=== PATIENT | female | born 1995 | race Caucasian/White ===

== ENCOUNTER 2019-01-16 19:17 | Emergency (ER) | payer BC, OTHER ==
[~2019-01-16] VITALS: Ht 160 cm; Wt 80.0 kg
[2019-01-16 19:42] LABS: CLARITY,URINE CLEAR; GLUCOSE, URINE (UA) NEGATIVE (NEGATIVE); KETONES,URINE 1+ (NEGATIVE); LEUKOCYTE ESTERASE ,URINE 3+ (NEGATIVE); NITRITE,URINE POSITIVE (NEGATIVE); PH,URINE 6 (5-9); PROTEIN,URINE 2+ (NEGATIVE); UROBILINOGEN,URINE 12 MG/DL (NORMAL)
[2019-01-16 19:52] LABS: BACTERIA,URINE FEW /HPF; BILIRUBIN,URINE 3+ (NEGATIVE); COLOR,URINE ORANGE
--- NOTE | 2019-01-16 19:52 | ED GU-Female ---
General Chief Complaint: - Urinary Stated Complaint: BACK PAIN Nursing Sepsis Screen: No Definite Risk Source: patient History of Present Illness Date Seen by Provider: Jan 16, 2019 Time Seen by Provider: 19:35 Initial Comments PT ARRIVES VIA POV WITH MULTIPLE FRIENDS C/O RIGHT FLANK PAIN OFF AND ON FOR AT LEAST 3 WEEKS OCCASIONALLY RADIATES TO RLQ AND RIGHT GROIN NOTHING WORSENS OR IMPROVES PAIN HAS NAUSEA WHEN PAIN IS BAD, BUT NO VOMITING/DIARRHEA/CONSTIPATION ONGOING URGENCY, FREQUENCY WITH URINATION X 3 WEEKS NO FEVER NO HISTORY OF SIMILAR HAS BEEN TO [facility] 2 FOR THIS, AND WAS GIVEN RX FOR MACROBID X 7 DAYS, AND TOLD TO TAKE OTC AZO FOR SYMPTOMS PT FINISHED ANTIBIOTIC 2 WEEKS AGO ALSO WENT TO [facility] ON THURSDAY, NO RX PT HAS NOT TAKEN ANYTHING FOR PAIN SYMPTOMS NO DIFFERENT TODAY LMP 12/21/18. NORMAL. ON OCP'S [facility] Allergies and Home Medications Allergies Coded Allergies: No Known Drug Allergies (Unverified , 01/16/19) Home Medications Hydrocodone Bit/Acetaminophen 1 Ea Tablet, 1 EA PO Q4H PRN for PAIN-MODERATE Prescribed by: OLU MANDEL on 01/16/192106 Levofloxacin 500 Mg Tablet, 500 MG PO DAILY Prescribed by: OLU MANDEL on 01/16/192106 Ondansetron 4 Mg Tab.rapdis, 4 MG PO Q4H Prescribed by: OLU MANDEL on 01/16/192106 Tamsulosin HCl 0.4 Mg Cap, 0.4 MG PO DAILY Prescribed by: OLU MANDEL on 01/16/192106 Patient Home Medication List Home Medication List Reviewed: Yes Review of Systems Review of Systems Constitutional: no symptoms reported; No fever Respiratory: no symptoms reported Cardiovascular: no symptoms reported Gastrointestinal: see HPI, abdominal pain, nausea; No vomiting Genitourinary: see HPI, frequency, flank pain, urgency : No LMP: Dec 21, 2018 Musculoskeletal: see HPI, back pain Skin: no symptoms reported; No rash Psychiatric/Neurological: No Symptoms Reported; Denies Numbness, Denies Paresthesia, Denies Tingling, Denies Weakness Endocrine: No Symptoms Reported Hematologic/Lymphatic: No Symptoms Reported Past Pqwaduc-Ivkanf-Qyxoia Hx Past Med/Social Hx: Reviewed and Corrections made Patient Social History Alcohol Use: Regular Use (WEEKENDS) Recreational Drug Use: Yes (THC) Drug of Choice: THC Smoking Status: Never a Smoker Recent Foreign Travel: No Contact w/Someone Who Travel: No Recent Infectious Disease Expo: No Past Medical History Surgeries: No Respiratory: No Cardiac: No Neurological: No Reproductive Disorders: No Genitourinary: No Gastrointestinal: No Musculoskeletal: No Endocrine: No HEENT: No Cancer: No Psychosocial: No Integumentary: No Blood Disorders: No Physical Exam Vital Signs Vital Signs - First Documented 01/16/19 19:28 Temp 36.6 Pulse 93 Resp 16 B/P (MAP) 142/100 (114) Pulse Ox 99 O2 Delivery Room Air Capillary Refill : Less Than 3 Seconds Height, Weight, BMI Height: '" Weight: lbs. oz. kg; 31.00 BMI Method: General Appearance: WD/WN, no apparent distress, other (WALKS UPRIGHT AND MOVES QUICKLY WITHOUT DIFFICULTY. SMILING, TALKATIVE, FULL/HEAVY MAKE UP, TEXTING/PLAYING ON PHONE. DOES NOT APPEAR TO BE IN ANY DISCOMFORT OR DISTRESS) Neck: normal inspection Cardiovascular: regular rate, rhythm, no murmur Respiratory: normal breath sounds, no respiratory distress, no accessory muscle use Gastrointestinal: normal bowel sounds, soft, no organomegaly, no pulsatile mass, tenderness (MILD RLQ TENDERNESS, MORE TENDER IN RIGHT FLANK) Back: no vertebral tenderness, CVA tenderness (R) Extremities: normal range of motion, non-tender, normal inspection, no pedal edema, no calf tenderness, normal capillary refill Neurologic/Psychiatric: [facility] specialist II-XII nml as tested, no motor/sensory deficits, alert, normal mood/affect, oriented x 3 Skin: normal color, warm/dry; No rash Progress/Results/Core Measures Suspected Sepsis Recent Fever Within 48 Hours: No Infection Criteria Present: Suspected New Infection New/Unexplained Altered Menta: No Sepsis Screen: No Definite Risk SIRS Temperature: Pulse: 93 Respiratory Rate: 16 Laboratory Tests 01/16/19 20:20: White Blood Count 11.4H Blood Pressure 142 /100 Mean: 114 Laboratory Tests 01/16/19 20:20: Creatinine 1.89H, Platelet Count 227, Total Bilirubin 0.3 Results/Orders Lab Results Laboratory Tests Test 01/16/19 19:35 01/16/19 20:20 Range/Units Urine Color ORANGE Urine Clarity CLEAR Urine pH 6 5-9 Urine Specific [place] 1.020 1.016-1.022 Urine Protein 2+ H NEGATIVE Urine Glucose (UA) NEGATIVE NEGATIVE Urine Ketones 1+ H NEGATIVE Urine Nitrite POSITIVE H NEGATIVE Urine Bilirubin 3+ H NEGATIVE Urine Urobilinogen 12 H NORMAL MG/DL Urine Leukocyte Esterase 3+ H NEGATIVE Urine RBC (Auto) 1+ H NEGATIVE Urine RBC 5-10 H /HPF Urine WBC 2-5 /HPF Urine Squamous Epithelial Cells 10-25 H /HPF Urine Crystals NONE /LPF Urine Bacteria FEW H /HPF Urine Casts NONE /LPF Urine Mucus NEGATIVE /LPF Urine Culture Indicated YES White Blood Count 11.4 H 4.3-11.0 10^3/uL Red Blood Count 4.56 4.35-5.85 10^6/uL Hemoglobin 13.3 11.5-16.0 G/DL Hematocrit 38 35-52 % Mean Corpuscular Volume 83 80-99 FL Mean Corpuscular Hemoglobin 29 25-34 PG Mean Corpuscular Hemoglobin Concent 35 32-36 G/DL Red Cell Distribution Width 12.1 10.0-14.5 % Platelet Count 227 130-400 10^3/uL Mean Platelet Volume 11.9 H 7.4-10.4 FL Neutrophils (%) (Auto) 66 42-75 % Lymphocytes (%) (Auto) 23 12-44 % Monocytes (%) (Auto) 8 0-12 % Eosinophils (%) (Auto) 3 0-10 % Basophils (%) (Auto) 1 0-10 % Neutrophils # (Auto) 7.6 1.8-7.8 X 10^3 Lymphocytes # (Auto) 2.6 1.0-4.0 X 10^3 Monocytes # (Auto) 0.9 0.0-1.0 X 10^3 Eosinophils # (Auto) 0.3 0.0-0.3 10^3/uL Basophils # (Auto) 0.1 0.0-0.1 10^3/uL Sodium Level 138 135-145 MMOL/L Potassium Level 3.9 3.6-5.0 MMOL/L Chloride Level 104 98-107 MMOL/L Carbon Dioxide Level 22 21-32 MMOL/L Anion Gap 12 5-14 MMOL/L Blood Urea Nitrogen 14 7-18 MG/DL Creatinine 1.89 H 0.60-1.30 MG/DL Estimat Glomerular Filtration Rate 33 BUN/Creatinine Ratio 7 Glucose Level 92 70-105 MG/DL Calcium Level 9.2 8.5-10.1 MG/DL Corrected Calcium 9.1 8.5-10.1 MG/DL Total Bilirubin 0.3 0.1-1.0 MG/DL Aspartate Amino Transf (AST/SGOT) 22 5-34 U/L Alanine Aminotransferase (ALT/SGPT) 21 0-55 U/L Alkaline Phosphatase 41 40-136 U/L Total Protein 7.2 6.4-8.2 GM/DL Albumin 4.1 3.2-4.5 GM/DL Amylase Level 83 25-125 U/L Lipase 30 8-78 U/L My Orders Orders - OLU MANDEL DO Ed Iv/Invasive Line Start (01/16/19 19:57) Ct Abd/Pelvis Wo(Kidney Stone) (01/16/19 19:57) Acute Abd Series (01/16/19 19:57) Amylase (01/16/19 19:57) Cbc With Automated Diff (01/16/19 19:57) Comprehensive Metabolic Panel (01/16/19 19:57) Lipase (01/16/19 19:57) Ed Iv/Invasive Line Start (01/16/19 19:57) Lactated Ringers (Lr 1000 Ml Iv Solution (01/16/19 19:57) Ketorolac Injection (Toradol Injection) (01/16/19 19:57) Ceftriaxone For Iv Use (Rocephin For I (01/16/19 20:00) Ed Iv/Invasive Line Start (01/16/19 20:48) Lactated Ringers (Lr 1000 Ml Iv Solution (01/16/19 20:48) Tamsulosin Capsule (Flomax Capsule) (01/16/19 21:15) Hydrocodone/Apap 5/325 Tablet (Lortab 5 (01/16/19 21:15) Levofloxacin Tablet (Levaquin Tablet) (01/16/19 21:15) Medications Given in ED Current Medications Medications Dose Ordered Sig/Raine Route Start Time Stop Time Status Last Admin Dose Admin Acetaminophen/ Hydrocodone Bitart 1 tab ONCE ONCE PO 01/16/19 21:15 01/16/19 21:16 DC 01/16/19 21:26 1 TAB Ceftriaxone Sodium 1000 mg/ Sterile Water 10 ml @ 200 mls/hr ONCE ONCE IV 01/16/19 20:00 01/16/19 20:02 DC 01/16/19 21:09 200 MLS/HR Lactated Ringer's 1,000 ml @ 0 mls/hr Q0M ONCE IV 01/16/19 19:57 01/16/19 19:59 DC 01/16/19 20:15 1,000 MLS/HR Lactated Ringer's 1,000 ml @ 0 mls/hr Q0M ONCE IV 01/16/19 20:48 01/16/19 20:49 DC 01/16/19 21:15 1,000 MLS/HR Levofloxacin 500 mg ONCE ONCE PO 01/16/19 21:15 01/16/19 21:16 DC 01/16/19 21:26 500 MG Vital Signs/I&O 01/16/19 01/16/19 19:28 21:31 Temp 36.6 36.7 Pulse 93 70 Resp 16 16 B/P (MAP) 142/100 (114) 105/73 Pulse Ox 99 98 O2 Delivery Room Air Room Air Capillary Refill : Less Than 3 Seconds Blood Pressure Mean: 114 Progress Note : Progress Note SYMPTOMS MUCH IMPROVED WITH MEDICATIONS Diagnostic Imaging Comments CT ABDOMEN / PELVIS--2 MM STONE AT RIGHT UVJ WITH MODERATE HYDRONEPHROSIS AND PERINEPHRIC STRANDING. PER RADIOLOGIST REPORT AT 2053 ACUTE ABDOMEN XRAYS--RIGHT PELVIC CALCIFICATION C/W URETERAL STONE NOTED ON CT. PER RADIOLOGIST REPORT AT 2102 Reviewed: Reviewed by Me Departure Impression Primary Impression: Right distal ureteral calculus Additional Impressions: UTI (urinary tract infection) Renal insufficiency Disposition: HOME, SELF-CARE Condition: Improved Departure-Patient Inst. Referrals: [facility] (PCP) Primary Care Physician HARVINDER MENDOSA MD Patient Instructions: Urinary Tract Infection, Adult (DC), Kidney Stones (DC), How to Strain Your Urine, Acute Kidney Failure (DC) Add. Discharge Instructions: LOTS OF CLEAR LIQUIDS-DRINK ENOUGH SO YOU ARE URINATING EVERY 2 HOURS WHILE AWAKE STRAIN ALL URINE, RETURN ANY STONES TO DR. MENDOSA'S OFFICE. FOLLOW UP WITH DR. MENDOSA IN 1-2 DAYS FOR FURTHER CARE, RETURN TO ER IF WORSE All discharge instructions reviewed with patient and/or family. Voiced understanding. Scripts Ondansetron (Ondansetron Odt) 4 Mg Tab.rapdis 4 MG PO Q4H for Nausea/Vomiting, #10 TAB Prov: OLU MANDEL DO 01/16/19 Hydrocodone Bit/Acetaminophen (LORTAB 7.5 MG TABLET) 1 Ea Tablet 1 EA PO Q4H PRN for PAIN-MODERATE MDD 6 for 3 Days, #20 TAB Prov: OLU MANDEL DO 01/16/19 Tamsulosin HCl (Flomax) 0.4 Mg Cap 0.4 MG PO DAILY, #10 CAP Prov: OLU MANDEL DO 01/16/19 Levofloxacin (Levaquin) 500 Mg Tablet 500 MG PO DAILY for INFECTION, #10 TAB Prov: OLU MANDEL DO 01/16/19 OLU MANDEL DO Jan 16, 2019 19:52
[2019-01-16] MEDS ORDERED: KETOROLAC 30 MG/ML VIAL IVP STA (19:57)
[2019-01-16] MEDS ORDERED: LACTATED RINGERS 1,000 ML IV ONE ×2 (19:57→20:48)
[2019-01-16] MEDS ORDERED: cefTRIAXone FOR IV USE 1,000 MG in WATER (STERILE) FOR INJECTION 10 ML IV ONE (20:00)
[2019-01-16 20:28] LABS: BASOPHILS # (AUTO) 0.1 10^3/uL (0.0-0.1); BASOPHILS % (AUTO) 1 % (0-10); EOSINOPHILS # (AUTO) 0.3 10^3/uL (0.0-0.3); EOSINOPHILS % (AUTO) 3 % (0-10); HEMATOCRIT 38 % (35-52); HEMOGLOBIN 13.3 G/DL (11.5-16.0); LYMPHOCYTES # (AUTO) 2.6 X 10^3 (1.0-4.0); LYMPHOCYTES % (AUTO) 23 % (12-44); MEAN CORPUSCULAR HEMOGLOBIN 29 PG (25-34); MEAN CORPUSCULAR HGB CONC 35 G/DL (32-36); MEAN CORPUSCULAR VOLUME 83 FL (80-99); MEAN PLATELET VOLUME 11.9 FL (7.4-10.4); MONOCYTES # (AUTO) 0.9 X 10^3 (0.0-1.0); MONOCYTES % (AUTO) 8 % (0-12); NEUTROPHILS # (AUTO) 7.6 X 10^3 (1.8-7.8); NEUTROPHILS % (AUTO) 66 % (42-75); PLATELET COUNT 227 10^3/uL (130-400); RED CELL DISTRIBUTION WIDTH 12.1 % (10.0-14.5); WHITE BLOOD COUNT 11.4 10^3/uL (4.3-11.0)
[2019-01-16 20:46] LABS: ALBUMIN 4.1 GM/DL (3.2-4.5); BILIRUBIN,TOTAL 0.3 MG/DL (0.1-1.0); CALCIUM 9.2 MG/DL (8.5-10.1); CREATININE SERUM 1.89 MG/DL (0.60-1.30); POTASSIUM 3.9 MMOL/L (3.6-5.0); TOTAL PROTEIN 7.2 GM/DL (6.4-8.2)
--- NOTE | 2019-01-16 20:48 | Diagnostic Imaging Report ---
INDICATION: Back pain and nausea. CT of the abdomen and pelvis obtained without IV contrast. There is no prior study for comparison. The visualized portions of the lung bases are clear. There were no pleural fluid collections. There is no free intraperitoneal air. The liver shows no focal lesions without contrast. Spleen, adrenals, and pancreas appear unremarkable. The left kidney appears normal. The right kidney shows perinephric edema with prominent hydronephrosis and hydroureter, with a small 2 mm stone at the right UVJ. There is no retroperitoneal mass or adenopathy. There is no ascites or abnormal fluid collection. Visualized bowel loops including the appendix appear normal. There is no adnexal mass or free fluid. IMPRESSION: Right-sided perinephric edema and hydronephrosis and hydroureter, secondary to a 2 mm stone at the right UVJ. There was no other significant finding. Dictated by: Dictated on workstation # [id number]
--- NOTE | 2019-01-16 20:54 | Diagnostic Imaging Report ---
INDICATION: Abdominal pain Abdominal series performed with a frontal chest radiograph and supine and upright abdominal films. Frontal chest view shows heart normal in size with the lungs clear. There is no pneumothorax or pleural fluid. Abdominal views demonstrate no evidence of free air. The abdominal bowel gas pattern is nonspecific. There is no overt obstruction. There is a tiny 2 mm calcification in the right side of the pelvis which is compatible with the right UVJ stone seen on CT. IMPRESSION: No sign of bowel obstruction or free air. No acute process in the chest. Small calcification in the right side of the pelvis is compatible with the right UVJ stone seen on CT. Dictated by: Dictated on workstation # [id number]
[2019-01-16] MEDS ORDERED: TAMS0.4C98 PO (21:07)
[2019-01-16] MEDS ORDERED: LEVO500T2 PO (21:07)
[2019-01-16] MEDS ORDERED: HYDR-34 PO (21:07)
[2019-01-16] MEDS ORDERED: ONDA4TAB11 PO (21:07)
[2019-01-16] MEDS ORDERED: TAMSULOSIN 0.4 MG (FLOMAX) CAP PO SCH (21:15)
[2019-01-16] MEDS ORDERED: HYDROcodone/APAP 5 MG/325 MG (LORTAB) TAB PO ONE (21:15)
[2019-01-16] MEDS ORDERED: LEVOFLOXACIN 500 MG TAB (LEVAQUIN) PO ONE (21:15)
[2019-01-16 21:31] VITALS: BP 105/73
== END 2019-01-16 22:30 | disposition home or self-care (01) ==
LOC: ER 19:20
DX: N13.2 Hydronephrosis with renal and ureteral calculous obstruction (principal); N39.0 Urinary tract infection, site not specified
CPT/HCPCS: 36415; 74022; 74176; 80053; 81000; 82150; 83690; 84703; 85025; 87088

== ENCOUNTER → 2019-01-18 | Outpatient (CLI) | payer BC ==
[~2019-01-18] MED LIST: HYDR-34 PO; LEVO500T2 PO; ONDA4TAB11 PO; TAMS0.4C98 PO
--- NOTE | 2019-01-18 13:39 | Diagnostic Imaging Report ---
INDICATION: Right flank pain and history of kidney stones. TIME OF EXAM: 12:59 p.m. FINDINGS: Frontal view of the abdomen and pelvis was obtained. Bowel gas pattern is nonobstructed. Tiny calcific density in the right pelvis is similar in location to the exam from two days earlier and again possibly at the right UVJ. No additional calculi are seen. IMPRESSION: Stable abdominal radiograph when compared with exam from two days earlier. Dictated by: Dictated on workstation # [id number]
== END ==
LOC: RAD 12:44
PROVIDERS: ATTEND Urology
DX: N20.1 Calculus of ureter (principal); Z87.442 Personal history of urinary calculi
CPT/HCPCS: 74018

== ENCOUNTER 2019-01-22 08:00 | Outpatient (RCR) | payer BC | END 2019-04-22 | disposition home or self-care (01) | LOC: LAB 08:00 → EDSTATUS 01-31 12:30 | PROVIDERS: ATTEND Urology | DX: N20.9 Urinary calculus, unspecified (principal) | CPT/HCPCS: 88300 ==